=== PATIENT | male | born 1960 | race Caucasian/White ===

== ENCOUNTER 2022-02-22 09:55 | Emergency (ER) | payer OTHER ==
[2022-02-22] MEDS ORDERED: Sodium Chloride 0.9% 1,000 ML IV SCH ×2 (11:00→11:45)
[2022-02-22] MEDS ORDERED: Ondansetron 4 MG/2 ML SDV IVPUSH ONE (13:42)
[2022-02-22] MEDS ORDERED: Ondansetron 4 MG Tab.DIS PO ONE (13:43)
== END 2022-02-22 13:49 | disposition home or self-care (01) ==
LOC: JP.ED 09:55
DX: K52.9 Noninfective gastroenteritis and colitis, unspecified (principal); E86.0 Dehydration; Z79.01 Long term (current) use of anticoagulants; Z87.891 Personal history of nicotine dependence
CPT/HCPCS: 36415; 70450; 71046; 80053; 81001; 82150; 83690; 84484; 85025; 85379; 93005; 93010; 99282; 99284; J7030; Q0162